=== PATIENT | female | born 1965 | race Caucasian/White ===

== ENCOUNTER → 2021-04-19 | Outpatient (CLI) | payer OTHER ==
--- NOTE | 2021-04-20 09:13 | MM ---
Reason for exam: screening (asymptomatic). Last mammogram was performed 3 years and 8 months ago. History: Family history of breast cancer in mother and breast cancer in sister. Physical Findings: A clinical breast exam by your physician is recommended on an annual basis and results should be correlated with mammographic findings. MG 3D Screening Mammo W/Cad Bilateral CC, MLO, and XCCL view(s) were taken. Prior study comparison: August 27, 2017, mammogram, performed at [place]. There are scattered fibroglandular densities. There is no discrete abnormality. No significant changes when compared with prior studies. ASSESSMENT: Negative, BI-RAD 1 RECOMMENDATION: Routine screening mammogram of both breasts in 1 year.
== END | disposition home or self-care (01) ==
LOC: RADMAMWWP 08:00
PROVIDERS: ATTEND Family Medicine
DX: Z12.31 Encounter for screening mammogram for malignant neoplasm of breast (principal)
CPT/HCPCS: 77063; 77067

== ENCOUNTER 2022-01-09 12:00 | Emergency (ER) | payer OTHER ==
[2022-01-09 12:15] VITALS: RESP 18; TEMP 97.7
--- NOTE | 2022-01-09 13:18 | ED ---
General Adult HPI - General Chief complaint: Recheck/Abnormal Lab/Rx Stated complaint: eye & throat problem Time Seen by Provider: 01/09/22 12:42 Source: patient Mode of arrival: ambulatory Limitations: no limitations - History of Present Illness Initial comments: This 56-year-old female presents emergency Department with complaint of left eye irritation/watering along with throat pain began on Sunday. Patient states she was seen by urgent care on Sunday and was given Augmentin and tobramycin eyedrops and diagnosed with pinkeye. Patient states that he did not take a strep test but treated her sore throat as if it was strep throat. Patient states both the left eye irritation and sore throat are improving, however she states that urgent care informed her to present to the emergency department if her symptoms are not resolved by today. Patient denies having any cough, trouble swallowing, trouble breathing. Patient denies any pain with eye movement. Patient states she does think just below her left eye feels a little bit swollen, however it is not painful to palpation. Patient states she has noticed a small pimple-like bump on her left lower eyelid and states that is a little bit painful to palpation. Patient denies any chest pain, shortness of breath, abdominal pain, nausea, vomiting, change in bowel or bladder, headache, lightheadedness, dizziness, change in vision. - Related Data Home Medications Medication Instructions Recorded Confirmed Acetaminophen [Tylenol Arthritis] 1,300 mg PO Q12H PRN 01/09/22 01/09/22 Amoxic-Pot Clav 875-125Mg 1 tab PO Q12HR 01/09/22 01/09/22 [Augmentin 875-125] Levothyroxine Sodium [Synthroid] 75 mcg PO DAILY 01/09/22 01/09/22 Tobramycin 0.3% Ophth Soln [Tobrex 1 drop BOTH EYES QID 01/09/22 01/09/22 0.3% Ophth Soln] Allergies Allergy/AdvReac Type Severity Reaction Status Date / Time No Known Allergies Allergy Verified 01/09/22 13:31 Review of Systems ROS Statement: Those systems with pertinent positive or pertinent negative responses have been documented in the HPI. ROS Other: All systems not noted in ROS Statement are negative. Past Medical History Past Medical History: Thyroid Disorder History of Any Multi-Drug Resistant Organisms: None Reported Past Surgical History: Hysterectomy Past Psychological History: No Psychological Hx Reported Smoking Status: Never smoker Past Alcohol Use History: Rare Past Drug Use History: None Reported General Exam Limitations: no limitations General appearance: alert, in no apparent distress Head exam: Present: atraumatic, normocephalic, normal inspection Eye exam: Present: normal appearance, PERRL, EOMI, other (Patient with stye to left lower eyelid. Patient with slight increase of watering and mild crusting in corner of eye that the patient states has improved since Sunday after receiving the tobramycin drops.). Absent: scleral icterus, conjunctival injection, periorbital swelling, periorbital tenderness Pupils: Present: normal accommodation ENT exam: Present: normal exam, mucous membranes moist. Absent: normal orophar ynx (Patient with mildly swollen left tonsil. Mild erythema to left tonsil. No exudates present. Uvula midline. No tonsillar abscess visualized.) Neck exam: Present: normal inspection, full ROM. Absent: tenderness, meningismus, lymphadenopathy Respiratory exam: Present: normal lung sounds bilaterally. Absent: respiratory distress, wheezes, rales, rhonchi, stridor Cardiovascular Exam: Present: regular rate, normal rhythm, normal heart sounds. Absent: systolic murmur, diastolic murmur, rubs, gallop, clicks GI/Abdominal exam: Present: soft, normal bowel sounds. Absent: distended, tenderness, guarding, rebound, rigid Extremities exam: Present: normal inspection, full ROM, normal capillary refill. Absent: tenderness, pedal edema, joint swelling, calf tenderness Back exam: Present: normal inspection, full ROM. Absent: CVA tenderness (R), CVA tenderness (L), paraspinal tenderness, vertebral tenderness Neurological exam: Present: alert, oriented X3, CN II-XII intact Psychiatric exam: Present: normal affect, normal mood Skin exam: Present: warm, dry, intact, normal color. Absent: rash Course Vital Signs 01/09/22 12:11 Temperature 97.7 F Pulse Rate 85 Respiratory 18 Rate Blood Pressure 151/86 O2 Sat by Pulse 99 Oximetry Medical Decision Making - Medical Decision Making This 56-year-old female presents emergency Department with stye to left lower eyelid and tonsillitis of left tonsil that began on Sunday. Heterophile, strep and Covid 19 negative. Patient did see urgent care who prescribed Augmentin and tobramycin eyedrops. Patient is seeing improvement in her eye and throat. Patient without any trouble swallowing, breathing or eating. Uvula midline. Patient without any pain with ocular movements. I did instruct patient to continue Augmentin and tobramycin drops along with applying warm compresses to left eye. Strict return precautions were discussed. Patient instructed to follow up with her primary care provider next 1-2 days. Patient verbally agreed to plan. Patient sent home in stable condition. Case discussed in detail my attending, Dr. Harrington. - Lab Data Lab Results 01/09/22 01/09/22 01/09/22 Range/Units 13:39 13:39 13:39 Coronavirus (PCR) Not Detected (Not Detectd) Heterophile Antibody Negative (Negative) Group A Strep Rapid Negative (Negative) Disposition Clinical Impression: Hordeolum externum left lower eyelid, Sore throat Disposition: HOME SELF-CARE Condition: Stable Additional Instructions: Please follow-up with your primary care provider next 1-2 days. Return to the emergency department with any new, worsening or concerning symptoms. Continue Augmentin and tobramycin drops. Apply warm compress to left eye Is patient prescribed a controlled substance at d/c from ED?: No Referrals: Yoni Chavira MD [Primary Care Provider] - 1-2 days Time of Disposition: 15:03
[2022-01-09 15:40] VITALS: BP 152/89; PULSE 69
== END 2022-01-09 15:40 | disposition home or self-care (01) ==
LOC: EC 12:00
DX: H00.015 Hordeolum externum left lower eyelid (principal); J02.9 Acute pharyngitis, unspecified; E07.9 Disorder of thyroid, unspecified; Z20.822 Contact with and (suspected) exposure to COVID-19; Z79.890 Hormone replacement therapy
CPT/HCPCS: 36415; 86308; 87081; 87430; 87635; 99283